=== PATIENT | female | born 1965 | race Caucasian/White ===

== ENCOUNTER 2018-10-22 22:03 | Emergency (ER) | payer OTHER ==
[~2018-10-22] VITALS: Ht 167.6 cm; Wt 154.2 kg
[2018-10-22 22:22] VITALS: BP 114/80
--- NOTE | 2018-10-22 22:23 | NUR ---
TO LOBBY A/W BED,AMBULATORY, VSS, DASH NOTED
--- NOTE | 2018-10-22 22:47 | NUR ---
PT TAKEN TO BED 2
--- NOTE | 2018-10-22 22:48 | NUR ---
PT TAKEN TO XRAY
--- NOTE | 2018-10-22 22:50 | NUR ---
ASSUMED CARE OF PT AT THIS TIME. C/O DIFFUSE ABDOMINAL PAIN W/ NAUSEA X 12 HOURS. NO VOMITING/DIARRHEA. AAOX4 WITH EVEN AND STEADY GAIT; PATIENT STATES PAIN OF 9/10; VSS; PATIENT POSITIONED FOR COMFORT; HOB ELEVATED; BEDRAILS UP X2; BED DOWN. ER MD MADE AWARE OF PT STATUS. WILL CONTINUE TO MONITOR.
--- NOTE | 2018-10-22 23:06 | NUR ---
PT RETURN FROM XRAY
--- NOTE | 2018-10-22 23:07 | NUR ---
Dr. Power evaluating patient at bedside.
[2018-10-22] MEDS ORDERED: ONDANSETRON 4 MG ODT PO ONE (23:15)
[2018-10-22] MEDS ORDERED: KETOROLAC 60 MG/2 ML VIAL IM ONE (23:25)
--- NOTE | 2018-10-22 23:47 | NUR ---
PT TAKEN TO CT
[2018-10-23] MEDS ORDERED: LEVOFLOXACIN 500 MG TAB PO ONE (00:35)
[2018-10-23] MEDS ORDERED: metroNIDAZOLE 250 MG TAB PO ONE (00:35)
[2018-10-23 00:50] VITALS: BP 116/84
--- NOTE | 2018-10-23 00:50 | NUR ---
Patient discharged with v/s stable. Written and verbal after care instructions given and explained. Patient alert, oriented and verbalized understanding of instructions. Ambulatory with steady gait. All questions addressed prior to discharge. ID band removed. Patient advised to follow up with PMD. Rx of MOTRIN, TRAMADOL, FLAGYL, AND CIPRO given. Patient educated on indication of medication including possible reaction and side effects. Opportunity to ask questions provided and answered.
== END 2018-10-23 00:50 | disposition home or self-care (01) ==
LOC: MED 22:03
DX: K57.32 Diverticulitis of large intestine without perforation or abscess without bleeding (principal); E11.9 Type 2 diabetes mellitus without complications
CPT/HCPCS: 74022; 74176; 81002; 81025; 96372; 99284; J1885; Q0162

== ENCOUNTER 2018-10-30 13:59 | Inpatient (IN) | payer OTHER ==
[~2018-10-30] VITALS: Ht 170.2 cm; Wt 152.4 kg
[2018-10-30 14:28] VITALS: BP 122/59
--- NOTE | 2018-10-30 14:34 | NUR ---
URINE CUP GIVEN, PT AMB TO RESTROOM, THEN TO LOBBY; VSS
--- NOTE | 2018-10-30 14:57 | NUR ---
PATIENT AMBULATED TO ER BED 5
--- NOTE | 2018-10-30 15:28 | NUR ---
C/O FATIGUE, GENERALIZED WEAKNESS, WATERY DIARRHEA, PAINFUL TO PASS GAS, SOB X 9 DAYS. PT WAS SEEN IN ER 9 DAYS AGO DX OF DIVERTICULOSIS GIVEN ANTIBIOTICS. PT STATES SYMPTOMS WORSENING. LLQ ABDOMEN PAIN 8/10.
[2018-10-30] MEDS ORDERED: NACL 0.9% 1,000 ML IV SCH (15:38)
[2018-10-30] MEDS ORDERED: LEVOFLOXACIN 500 MG/D5W PREMIX 100 ML IV ONE (15:40)
[2018-10-30] MEDS ORDERED: ONDANSETRON 4 MG/2 ML VIAL IVP ONE (15:40)
[2018-10-30] MEDS ORDERED: MORPHINE SULFATE 4 MG/ML SYR IVP ONE (15:40)
[2018-10-30] MEDS ORDERED: metroNIDAZOLE 500 MG/NS PREMIX 100 ML IV ONE (15:40)
--- NOTE | 2018-10-30 18:16 | NUR ---
DOWNTIME CHARTING COMPLETED FROM 1600 TO 1810. PLEASE ADVISE PAPER CHARTING FOR CONCERNS DURING THAT TIME FRAME.
[2018-10-30 19:12] LABS: ANION GAP 7.3 (8-16); CREATININE 0.9 mg/dL (0.6-1.3); POTASSIUM 3.3 mmol/L (3.5-5.1); TOTAL BILIRUBIN 0.2 mg/dL (0.0-1.0)
[2018-10-30 19:16] LABS: PROTHROMBIN TIME 11.6 secs (10.8-13.4)
[2018-10-30 19:20] LABS: HEMATOCRIT 38.7 % (36-48); HEMOGLOBIN 12.6 g/dL (12.0-16.0); MEAN CORPUSCULAR VOLUME 78.9 fL (80-94); WHITE BLOOD COUNT (AUTO) 14.3 K/uL (4.8-10.8)
[2018-10-30 19:21] LABS: LYMPHOCYTES % (AUTO) 6.5 % (20.5-51.1); MEAN CORPUSCULAR HEMOGLOBIN 26 pg (27-31); MEAN CORPUSCULAR HGB CONC 33 g/dL (33-37); NEUTROPHILS % (AUTO) 87.2 % (42.2-75.2); PLATELET COUNT (AUTO) 290 K/uL (140-450); RED CELL DISTRIBUTION WIDTH 42.4 % (11.6-13.7)
[2018-10-30 19:22] LABS: BASOPHILS % (AUTO) 0.3 % (0.0-2.0); EOSINOPHILS % (AUTO) 0.2 % (0.0-4.0); LYMPHOCYTES # (AUTO) 0.9 K/uL (2.5-16.5); MONOCYTES # (AUTO) 0.8 K/uL (0.8-1.0); MONOCYTES % (AUTO) 5.8 % (1.7-9.3); NEUTROPHILS # (AUTO) 12.5 K/uL (1.8-7.7)
--- NOTE | 2018-10-30 19:36 | NUR ---
RECEIVED REPORT FROM TELEGRAPH REPEATER INSTALLER MEGAN FOR CONTINUITY OF CARE. PT A/OX4 ON ROOM AIR. PT IS ABLE TO MAKE NEEDS KNOWN, ABLE TO FOLLOW COMMANDS. PT ARRIVED TO UNIT VIA GURNEY AND AMBULATED WITH STEADY GAIT TO BED FROM HALLWAY. PT SKIN IS INTACT. PT HAS A 20G IV TO RIGHT AC, ASYMPTOMATIC AND INTACT. VITAL SIGNS WITHIN NORMAL LIMITS. PT STABLE, DENIES HAVING ANY PAIN, NO SIGNS OF DISTRESS NOTED AT THIS TIME. PT POSITIONED FOR COMFORT. BED IN LOWEST POSITION, BED ALARM ON. WILL CONTINUE TO MONITOR.
[2018-10-30 20:30] VITALS: BP 132/64
--- NOTE | 2018-10-30 20:50 | NUR ---
REFER TO DOWN TIME CHARTING FOR TRASNFER OF CARE TO FLOOR.
[2018-10-30] MEDS ORDERED: ZOLPIDEM 5 MG TAB PO PRN (21:20)
[2018-10-30] MEDS ORDERED: DEXTROSE 50% 50 ML SYR IVP PRN (21:20)
[2018-10-30] MEDS ORDERED: ACETAMINOPHEN 325 MG TAB PO PRN (21:20)
[2018-10-30] MEDS ORDERED: DOCUSATE SODIUM 100 MG GELCAP PO PRN (21:20)
[2018-10-30] MEDS ORDERED: LORazepam 2 MG/ML VIAL IM/IVP PRN (21:20)
[2018-10-30] MEDS ORDERED: HYDROcodone/APAP 5/325 MG 1 TAB TAB PO PRN (21:20)
[2018-10-30] MEDS ORDERED: BISACODYL 5 MG TABEC PO ONE (21:30)
[2018-10-30] MEDS ORDERED: DOCUSATE SODIUM 100 MG GELCAP PO ONE (21:30)
[2018-10-30] MEDS ORDERED: SIMETHICONE 80 MG TAB.CHEW PO PRN (21:30)
[2018-10-30] MEDS ORDERED: METF1000 PO (21:59)
[2018-10-30] MEDS ORDERED: ALUMINUM HYD/MAG/SIMETHICONE 30 ML UDC PO SCH (22:00)
[2018-10-30] MEDS ORDERED: LIDOCAINE VISCOUS 2% 20 ML UDC PO SCH (22:00)
[2018-10-30] MEDS ORDERED: SIMETHICONE 80 MG TAB.CHEW PO SCH (22:00)
[2018-10-30] MEDS ORDERED: DICYCLOMINE HCL LIQUID 10 MG/5 ML UDC PO SCH (22:00)
[2018-10-30] MEDS ORDERED: cefTRIAXone 2,000 MG VIAL ONE (22:09)
[2018-10-30] MEDS: cefTRIAXone 2,000 MG in DEXTROSE 5% 100 ML IV SCH (22:14)
[2018-10-30] MEDS: NACL 0.9% 1,000 ML IV SCH (22:14)
--- NOTE | 2018-10-30 22:15 | NUR ---
ADMINISTERED SCHEDULED MEDICATIONS ORDERED, PT TOLERATED WELL. WILL CONTINUE TO MONITOR.
[2018-10-30 22:19] LABS: MAGNESIUM 1.7 mg/dL (1.8-2.4); PHOSPHORUS 3.1 mg/dL (2.5-4.9); THYROID STIMULATING HORMONE 1.41 uIU/mL (0.34-3.74)
--- NOTE | 2018-10-30 23:15 | NUR ---
NEW IV STARTED TO RIGHT HAND, 22G. OLD IV WAS REMOVED BECAUSE IT WAS LEAKING AND NOT FLUSHING.
[2018-10-30 23:47] LABS: APPEARANCE,URINE CLEAR (CLEAR); BILIRUBIN,URINE NEGATIVE (NEGATIVE); BLOOD, URINE TRACE (NEGATIVE); COLOR,URINE YELLOW (YELLOW); LEUKOCYTE ESTERASE ,URINE NEGATIVE (NEGATIVE); NITRITE, URINE NEGATIVE (NEGATIVE); UGLUCOSE 3+ (NEGATIVE)
[2018-10-30 23:48] LABS: RBC,URINE 0-5 (RARE) /HPF (0-5); WBC,URINE 0-5 (RARE) /HPF (0-5)
[2018-10-31] MEDS ORDERED: MAGNESIUM OXIDE 400 MG TAB PO SCH
[2018-10-31] MEDS ORDERED: POTASSIUM CHLORIDE 20% 40 MEQ/15 ML UDC PO SCH
--- NOTE | 2018-10-31 | NUR ---
VITAL SIGNS WITHIN NORMAL LIMITS. PT STABLE. NO SIGNS OF DISTRESS NOTED AT THIS TIME. PT POSITIONED FOR COMFORT. BED IN LOWEST POSITION, BED ALARM ON. WILL CONTINUE TO MONITOR.
[2018-10-31 00:03] LABS: BARBITURATE, URINE NEG. ng/ml (NEG <=200); BENZODIAZEPINE, URINE NEG. ng/mL (NEG <=200); CANNABINOID, URINE NEG. ng/mL (NEG <=50); COCAINE, URINE NEG. ng/mL (NEG <=300); OPIATE, URINE NEG. ng/mL (NEG <=2000); PHENCYCLIDINE SCREEN,URINE NEG. ng/mL (NEG <=25)
[2018-10-31] MEDS: metroNIDAZOLE 500 MG/NS PREMIX 100 ML IV SCH ×4 (00:11→23:56)
[2018-10-31] MEDS: ONDANSETRON 4 MG/2 ML VIAL IM/IVP PRN (00:29)
[2018-10-31] MEDS: MORPHINE SULFATE 2 MG/ML SYR IVP PRN ×2 (00:31→21:03)
--- NOTE | 2018-10-31 00:31 | NUR ---
ADMINISTERED MORPHINE FOR 7/10 ABDOMINAL PAIN. PT TOLERATED WELL.
--- NOTE | 2018-10-31 02:05 | NUR ---
NO SIGNS OF DISTRESS NOTED AT THIS TIME. PT POSITIONED FOR COMFORT. BED IN LOWEST POSITION, BED ALARM ON. WILL CONTINUE TO MONITOR.
--- NOTE | 2018-10-31 03:05 | NUR ---
GOT CONSENT FROM PT TO DO A CT OF THE ABDOMEN/PELVIS WITH CONTRAST, AND STARTED A 20G IV TO LEFT AC. SPOKE WITH DR CRAIG AND SHE SAID THE CT WITH CONTRAST WILL BE DONE IN THE MORNING, AND THAT SHE ORDERED A CONSULT.
--- NOTE | 2018-10-31 05:32 | NUR ---
LABS ARE BEING DRAWN. BED IN LOWEST POSITION, BED ALARM ON. WILL CONTINUE TO MONITOR.
[2018-10-31 06:12] LABS: HEMATOCRIT 32.7 % (36-48); HEMOGLOBIN 10.6 g/dL (12.0-16.0); MEAN CORPUSCULAR HEMOGLOBIN 26 pg (27-31); MEAN CORPUSCULAR HGB CONC 32 g/dL (33-37); MEAN CORPUSCULAR VOLUME 79.4 fL (80-94); PLATELET COUNT (AUTO) 240 K/uL (140-450); RED BLOOD CELL COUNT(AUTO) 4.12 MIL/uL (4.20-5.40)
[2018-10-31] MEDS: BLOOD GLUCOSE MONITORING 1 DEV DEV FS SCH ×4 (06:26→21:25)
--- NOTE | 2018-10-31 06:27 | NUR ---
ADMINISTERED SCHEDULED MEDICATIONS, PT TOLERATED WELL. PT REFUSED INSULIN COVERAGE BECAUSE SHE IS WORRIED ABOUT HER BLOOD SUGAR DROPPING, SHE STATES SHE WOULD BE A LOT MORE COMFORTABLE GETTING INSULIN FOR NEXT TIME AFTER SHE EATS BREAKFAST IF HER BLOOD SUGAR STILL NEEDS IT. INFORMED PT NEXT BG CHECK IS AROUND 11:30 AM AND SHE SAID "THAT'S BETTER."
[2018-10-31] MEDS ORDERED: PANTOPRAZOLE 40 MG TABEC PO SCH (06:30)
[2018-10-31 06:35] LABS: CREATININE 0.8 mg/dL (0.6-1.3)
[2018-10-31 06:46] LABS: ANION GAP 10.3 (8-16); CARBON DIOXIDE 27.4 mmol/L (21-32); POTASSIUM 3.7 mmol/L (3.5-5.1)
[2018-10-31 06:53] LABS: CHOL/HDL RATIO 3.7 (1-4.5); MAGNESIUM 1.5 mg/dL (1.8-2.4); PHOSPHORUS 3.1 mg/dL (2.5-4.9)
[2018-10-31 06:57] LABS: LYMPHOCYTES % (MANUAL) 9 % (20-46); MONOCYTES % (MANUAL) 6 % (5-12)
--- NOTE | 2018-10-31 07:17 | NUR ---
ENDORSED PT TO DAY SHIFT RN JENNIFER FOR CONTINUITY OF CARE. PT IN STABLE CONDITION.
--- NOTE | 2018-10-31 07:20 | NUR ---
REPORT RECEIVED FROM RAT CULTURIST NURSE, PT SLEEPING QUIETLY IN NAD, RESP EVEN UNLABORED, NO C/O PAIN, SKIN WARM DRY COLOR WNL, POC REVIEWED, ALL SAFETY MEASURES IN PLACE, WILL CONTINUE TO MONITOR.
--- NOTE | 2018-10-31 07:39 | NUR ---
RECEIVED CALL FROM DR MONTESINOS, SURGICAL CONSULT SHOULD BE CHANGED TO ONCALL SURGEON PER DR MONTESINOS, DR MONTESINOS IS UNABLE TO TAKE THIS PATIENT, WILL NOTIFY ATTENDING.
--- NOTE | 2018-10-31 07:58 | NUR ---
PATIENT HAS BEEN SCREENED AND CATEGORIZED HIGH NUTRITION RISK. PATIENT WILL BE SEEN WITHIN 1-2 DAYS OF ADMISSION. 10/31/18-11/01/[address]
[2018-10-31 08:00] VITALS: BP 118/66
--- NOTE | 2018-10-31 08:00 | NUR ---
DR HAWLEY AND TEAM OF DOCTORS AT BEDSIDE FOR EVAL.
[2018-10-31] MEDS ORDERED: MAG SULF 2000 MG/WATER PREMIX 100 ML IV SCH (08:57)
--- NOTE | 2018-10-31 09:25 | NUR ---
PT TAKEN TO RADIOLOGY FOR KUB
--- NOTE | 2018-10-31 09:40 | NUR ---
PT RETURNED BACK FROM RADIOLOGY.
--- NOTE | 2018-10-31 09:49 | NUR ---
MAG RIDER STARTED PER ORDER, IV SITE WNL, PT STATES PAIN IS TOLERABLE.
--- NOTE | 2018-10-31 10:30 | NUR ---
PT SITTING UP RESTING IN NAD, PT AWARE OF NPO, POC REVIEWED, DENIES NEED FOR PAIN, WILL CONTINUE TO MONITOR.
--- NOTE | 2018-10-31 12:25 | NUR ---
ORAL CONTRAST STARTED FOR CT ABD/PELV.
--- NOTE | 2018-10-31 12:45 | NUR ---
10/31/18 RD INITIAL ASSESSMENT COMPLETED PLEASE REFER TO NUTRITION ASSESSMENT UNDER CARE ACTIVITY FOR ESTIMATED NUTRITIONAL NEEDS. 1. CONTINUE NPO DIET UNTIL MEDICALLY APPROPRIATE TO BEGIN NUTRITION 2. WHEN/IF PATIENT MEDICALLY STABLE TO BEGIN NUTRITION, ADVANCE TO CLEAR LIQUID 3. ONCE TOLERANCE OF CLEAR LIQUID DISPLAYED, ADVANCE TO LOW FIBER DIET [address] PROVIDED NUTRITION THERAPY EDUCATION FOR A LOW FIBER DIET 5. RD TO FOLLOW-UP 3-5 DAYS, MODERATE RISK YING MCDONALD RD
--- NOTE | 2018-10-31 13:25 | NUR ---
PT UP TO BATHROOM WITH STEADY GAIT.
--- NOTE | 2018-10-31 13:56 | NUR ---
US AT BEDSIDE.
[2018-10-31] MEDS: NACL 0.9% 1,000 ML IV SCH (13:59)
--- NOTE | 2018-10-31 14:55 | NUR ---
PT TAKEN TO CT IN BED.
--- NOTE | 2018-10-31 15:10 | NUR ---
LEFT AC IV NO LONGER WORKING, LEAKING. DC'D, CATH TIP INTACT, BLEEDING CONTROLLED, NEW IV STARTED TO R AC 20G, PT ELISSA WELL.
--- NOTE | 2018-10-31 15:28 | NUR ---
PT BACK FROM CT, IVF RESTARTED, FLAGYL STARTED PER ORDER. PT DENIES PAIN, SMILING, WILL COTNINUE TO DYLAN,.
[2018-10-31 16:00] VITALS: BP 111/73
[2018-10-31] MEDS: DEXT 5% / NACL 0.9% 500 ML IV SCH (16:48)
[2018-10-31] MEDS: INSULIN LISPRO SLIDING SCALE 100 UNITS/ML VIAL SUBQ PRN ×2 (16:51→21:31)
--- NOTE | 2018-10-31 16:55 | NUR ---
BEDSIDE GLUCOSE 171, 2 UNITS OF INSULIN GIVEN PER SLIDING SCALE, PT ELISSA WELL, IVF CHANGED TO D5NS, AT BEDSIDE, PT DENIES ANY PAIN OR DISCOMFORT, WILL CONTINUE TO MONITOR.
--- NOTE | 2018-10-31 19:30 | NUR ---
REPORT GIVEN TO THORACIC MEDICINE PHYSICIAN NURSE. PT STABLE
--- NOTE | 2018-10-31 19:30 | NUR ---
RECEIVED BEDSIDE REPORT FROM KD RODRIGUEZ, PATIENT IN BED, FAMILY AT BEDSIDE. ON RA, PATIENT REQUEST PAIN MEDICATION V/S TAKEN ALL WITHIN BASELINE. IV IN RIGHT AC 20G SL, IV IN RIGHT HAND 22 G INFUSING D5 AND 1/2 NS AT 60 ML/HR. ABDOMEN SOFT AND NON DISTENDED. BG 164, ASKED DR RAPP IF OKAY TO GIVE 2 U INSULIN, DR RAPP STATED OKAY TO GIVE. EXPLAINED PLAN OF CARE UPDATED BORED WILL CONTINUE TO MONITOR.
--- NOTE | 2018-10-31 21:03 | NUR ---
PATIENT C/O PAIN AND NAUSEA, MEDICATED WITH MORPHINE FOR SEVERE PAIN. PATIENT CHANGED MIND ABOUT FEELING NAUSEOUS RETURNED ZOFRAN.
[2018-10-31] MEDS: cefTRIAXone 2,000 MG in DEXTROSE 5% 100 ML IV SCH (21:14)
[2018-11-01] VITALS: BP 131/66
--- NOTE | 2018-11-01 | NUR ---
V/S TAKEN ALL WITHIN BASELINE.
[2018-11-01] MEDS: DEXT 5% / NACL 0.9% 500 ML IV SCH ×3 (00:20→17:00)
--- NOTE | 2018-11-01 00:45 | NUR ---
DR SINGH ARRIVED TO UNIT. EXPLAINED THAT DAY SHIFT NURSE ENDORSED THAT DR MONTESINOS SEEN PATIENT AND CANT TAKE HER DUE TO WEIGHT AND THAT DR PARDO DOES NOT BELIEVE CASE IS AN EMERGENCY. EXPLAINED THERE ARE NO NOTES THAT DR MONTESINOS OR EDVIN SEEN PATIENT. DR SINGH REFUSED CASE. DR RAPP AWARE.
--- NOTE | 2018-11-01 01:21 | NUR ---
PATIENT C/O PAIN AND FEELING NAUSEOUS MEDICATED WITH MORPHINE AND ZOSYN.
[2018-11-01] MEDS: MORPHINE SULFATE 2 MG/ML SYR IVP PRN (01:29)
[2018-11-01] MEDS: ONDANSETRON 4 MG/2 ML VIAL IM/IVP PRN (01:29)
--- NOTE | 2018-11-01 01:45 | NUR ---
MEDICATED WITH MORPHINE AND ZOFRAN FOR ABDOMINAL PAIN.
--- NOTE | 2018-11-01 01:48 | NUR ---
DR RAPP AT BEDSIDE TO EXPLAIN PLAN OF CARE WITH PATIENT.
[2018-11-01] MEDS: BLOOD GLUCOSE MONITORING 1 DEV DEV FS SCH ×3 (06:12→16:30)
[2018-11-01] MEDS: metroNIDAZOLE 500 MG/NS PREMIX 100 ML IV SCH ×2 (06:12→15:07)
--- NOTE | 2018-11-01 06:15 | NUR ---
BG 178 WILL HOLD DUE TO PATIENT NPO. SPOKE WITH NICOLE BALBUENA TO GIVE SIMETHICONE ONE TIME. WILL GIVE.
[2018-11-01 06:20] LABS: BASOPHILS % (AUTO) 0.3 % (0.0-2.0); EOSINOPHILS # (AUTO) 0.1 K/uL (0-0.4); EOSINOPHILS % (AUTO) 0.5 % (0.0-4.0); HEMATOCRIT 34.1 % (36-48); HEMOGLOBIN 11.1 g/dL (12.0-16.0); LYMPHOCYTES % (AUTO) 8.4 % (20.5-51.1); MEAN CORPUSCULAR HEMOGLOBIN 26 pg (27-31); MEAN CORPUSCULAR HGB CONC 33 g/dL (33-37); MEAN CORPUSCULAR VOLUME 79.7 fL (80-94); MONOCYTES # (AUTO) 0.7 K/uL (0.8-1.0); NEUTROPHILS # (AUTO) 10.1 K/uL (1.8-7.7); NEUTROPHILS % (AUTO) 84.8 % (42.2-75.2); PLATELET COUNT (AUTO) 244 K/uL (140-450); RED BLOOD CELL COUNT(AUTO) 4.27 MIL/uL (4.20-5.40); RED CELL DISTRIBUTION WIDTH 15.2 % (11.6-13.7); WHITE BLOOD COUNT (AUTO) 11.9 K/uL (4.8-10.8)
[2018-11-01 06:38] LABS: MAGNESIUM 1.8 mg/dL (1.8-2.4); PHOSPHORUS 2.7 mg/dL (2.5-4.9)
[2018-11-01 06:45] LABS: ANION GAP 7.1 (8-16); CARBON DIOXIDE 28.1 mmol/L (21-32); CREATININE 0.7 mg/dL (0.6-1.3); POTASSIUM 3.2 mmol/L (3.5-5.1)
--- NOTE | 2018-11-01 07:37 | NUR ---
ENDORSED PATIENT TO DAY SHIFTY NURSE PATIENT STABLE
--- NOTE | 2018-11-01 07:38 | NUR ---
RECEIVED REPORT FROM DRYWALL CARRIER NURSE. PT IN STABLE CONDITION. RESPIRATIONS EVEN AND UNLABORED. IV INTACT AND PATENT. SAFETY MEASURES IN PLACE. BED IN LOW POSITION. CALL LIGHT AT BEDSIDE. WILL CONTINUE TO MONITOR.
[2018-11-01 08:00] VITALS: BP 132/82
[2018-11-01] MEDS ORDERED: POTASSIUM CHLORIDE 10 MEQ TABER PO SCH (08:00)
[2018-11-01] MEDS ORDERED: FAMOTIDINE 20 MG TAB PO SCH (09:00)
--- NOTE | 2018-11-01 09:00 | NUR ---
GAVE ORDERED DUE MEDICATIONS AT THIS TIME. PT TOLERATED WELL. WILL CONTINUE TO MONITOR.
[2018-11-01 09:54] LABS: T4 (THYROXINE) 12.3 ug/dL (4.5-12.0)
--- NOTE | 2018-11-01 11:22 | NUR ---
Called [facility] and spoke with Aga. Requesting for auth for higher level of care. [facility] [place] contracted with [facility].
--- NOTE | 2018-11-01 11:34 | NUR ---
Called [facility] and spoke with Dwight regarding pt needs a higher level of care. Faxed to [facility] face sheet, labs, CXR, CT , VS and H&P as requested by Dwight.
--- NOTE | 2018-11-01 12:10 | NUR ---
PT SITTING UP IN BED. FAMILY MEMBER AT BEDSIDE. PT IN STABLE CONDITION.
[2018-11-01] MEDS ORDERED: ZOLP5TAB1 PO (13:22)
[2018-11-01] MEDS ORDERED: METR500S14 IV (13:22)
[2018-11-01] MEDS ORDERED: ACET-9525 PO (13:22)
[2018-11-01] MEDS ORDERED: DOCU-299 PO (13:22)
[2018-11-01] MEDS ORDERED: LACT10CA1 PO (13:22)
[2018-11-01] MEDS ORDERED: FAMO20TA13 PO (13:22)
[2018-11-01] MEDS ORDERED: MORP2SOL18 IVP (13:22)
[2018-11-01] MEDS ORDERED: SIME80CT27 PO (13:22)
[2018-11-01] MEDS ORDERED: D50SYR IVP (13:22)
[2018-11-01] MEDS ORDERED: HUMSLIDE SUBQ (13:22)
[2018-11-01] MEDS ORDERED: GLUC-805 FS (13:22)
[2018-11-01] MEDS ORDERED: ATI2I IM/IVP (13:22)
[2018-11-01] MEDS ORDERED: METF500T PO (13:22)
[2018-11-01] MEDS ORDERED: CEFT1SOL1 IV (13:22)
[2018-11-01] MEDS ORDERED: ONDA2SOL45 IM/IVP (13:22)
[2018-11-01] MEDS ORDERED: ACET-1182 PO (13:22)
--- NOTE | 2018-11-01 13:28 | NUR ---
Faxed to [facility] accepting doctor is Dr. Disla and transfer back agreement as requested by [facility] medical office supervisor Oliva.
--- NOTE | 2018-11-01 14:41 | NUR ---
Spoke with Oliva lynne supervisor lump room from [facility] pt is going to room 434. Lolly station phone # .
--- NOTE | 2018-11-01 14:42 | NUR ---
Spoke with Karly clinical specialist from [facility] informing her the accepting hospital is [facility] .
--- NOTE | 2018-11-01 14:47 | NUR ---
Transportation arranged with [facility] pt to be picked up at 1800 from room 121 B and transported to [facility] room 434. Neal Cedeño RN for pt's time of orange picking supervisor by [facility].
--- NOTE | 2018-11-01 15:08 | NUR ---
Face sheet and clinical faxed to [facility] . Pending case #[id number].
[2018-11-01] MEDS: INSULIN LISPRO SLIDING SCALE 100 UNITS/ML VIAL SUBQ PRN (15:09)
[2018-11-01 16:00] VITALS: BP 126/82
[2018-11-01] MEDS ORDERED: MAG SULF 2000 MG/WATER PREMIX 50 ML IV ONE (16:05)
--- NOTE | 2018-11-01 16:30 | NUR ---
GAVE REPORT TO ESEQUIEL Lloyd STAFF AT [facility]. ALL QUESTIONS ANSWERED AT THIS TIME. ESEQUIEL VERBALIZED UNDERSTANDING OF REPORT.
[2018-11-01] MEDS: MAGNESIUM SULFATE 1GM in DEXTROSE 5% 100 ML PREMIX IV SCH ×2 (16:45→17:45)
--- NOTE | 2018-11-01 18:30 | NUR ---
GAVE DISCHARGE INSTRUCTIONS AND INFORMATION ABOUT TRANSPORT TO [facility] ROOM 434, PT VERBALIZED UNDERSTANDING. DISCONNECTED IV, SL. REMOVED ID BAND. PT PLACED ON GURNEY. TRANSPORT TEAM GIVEN REPORT FOR CONTINUITY OF CARE. ALL QUESTIONS ANSWERED AT THIS TIME. PT IN STABLE CONDITION.
[2018-11-03] MEDS ORDERED: metFORMIN 500 MG TAB PO SCH (09:00)
== END 2018-11-01 18:30 | disposition short-term general hospital (02) | DRG 871 ==
LOC: MED 13:59 → MTU 19:35 → UNDOADMIN 19:35 → MTU 20:25
PROVIDERS: ADMIT General Practice; ATTEND General Practice
DX: A41.9 Sepsis, unspecified organism (principal); E43 Unspecified severe protein-calorie malnutrition; E87.1 Hypo-osmolality and hyponatremia; Z68.43 Body mass index [BMI] 50.0-59.9, adult; K57.20 Diverticulitis of large intestine with perforation and abscess without bleeding; E87.6 Hypokalemia; K21.9 Gastro-esophageal reflux disease without esophagitis; E88.09 Other disorders of plasma-protein metabolism, not elsewhere classified; E05.80 Other thyrotoxicosis without thyrotoxic crisis or storm; E66.01 Morbid (severe) obesity due to excess calories; E83.42 Hypomagnesemia; E11.9 Type 2 diabetes mellitus without complications; Z90.49 Acquired absence of other specified parts of digestive tract; Z83.3 Family history of diabetes mellitus; Z83.79 Family history of other diseases of the digestive system; Z87.891 Personal history of nicotine dependence
CPT/HCPCS: 36415; 74018; 80048; 80053; 80305; 81001; 82553; 82948; 83036; 83605; 83690; 83735; 83880; 84100; 84436; 84443; 84484; 85025; 85610; 85730; 87040; 87081; 87086; 93005; 93925; 93970; 99285; J0696; J1815; J1956; J2270; J2405; J3475; J3490; J7030; J7042; J7060; Q0092; Q9967